=== PATIENT | male | born 1970 | race Caucasian/White ===

== ENCOUNTER 2018-03-31 12:25 | Emergency (ER) | payer OTHER | END 2018-03-31 12:45 | disposition home or self-care (01) | LOC: BURERS 12:25 | DX: K08.89 Other specified disorders of teeth and supporting structures (principal); E78.2 Mixed hyperlipidemia; I11.0 Hypertensive heart disease with heart failure; I50.9 Heart failure, unspecified; Z79.899 Other long term (current) drug therapy | CPT/HCPCS: 99282 ==

== ENCOUNTER 2023-08-05 07:55 | Emergency (ER) | payer OTHER, SELFPAY ==
[2023-08-05] MEDS ORDERED: Dexamethasone 10 MG/ML VIAL ONE (08:21)
[2023-08-05] MEDS ORDERED: AMOXicillin 250 MG CAP ONE (08:21)
== END 2023-08-05 08:27 | disposition home or self-care (01) ==
LOC: BURERS 07:55
DX: K04.7 Periapical abscess without sinus (principal); I11.0 Hypertensive heart disease with heart failure; I50.9 Heart failure, unspecified
CPT/HCPCS: 99282; J1100